=== PATIENT | female | born 1975 | race American Indian/Alaskan Native ===

== ENCOUNTER 2018-02-21 13:37 | Emergency (ER) | payer SELFPAY ==
[2018-02-21 14:07] VITALS: BP 119/63
[2018-02-21 14:59] LABS: Basophils % (Auto) 0.3 % (0.0-1.8); Eosinophils % (Auto) 0.6 % (0.0-4.3); Hematocrit 37.4 % (30.3-42.9); Hemoglobin 12.7 gm/dl (10.1-14.3); Lymphocytes # (Auto) 1.7 K/mm3 (1.2-5.4); Lymphocytes % (Auto) 24.6 % (13.4-35.0); Mean Corpuscular HGB Conc 34 % (30-34); Mean Corpuscular Hemoglobin 27 pg (28-32); Mean Corpuscular Volume 78 fl (79-97); Monocytes # (Auto) 0.7 K/mm3 (0.0-0.8); Monocytes % (Auto) 10.9 % (0.0-7.3); Platelet Count 187 K/mm3 (140-440); Red Blood Count 4.78 M/mm3 (3.65-5.03); Red Cell Distribution Width 16.1 % (13.2-15.2)
[2018-02-21 15:45] LABS: Bilirubin,Urine NEG (Negative); Blood,Urine LG (Negative); Color,Urine Yellow (Yellow); Protein,Urine <15 mg/dL mg/dL (Negative); Urobilinogen,Urine < 2.0 mg/dL (<2.0)
[2018-02-21] MEDS ORDERED: TYLENOL PO ONE (16:24)
--- NOTE | 2018-02-21 17:35 | Ultrasound Report ---
FINAL REPORT EXAM: US OB < = 14 WEEKS FETUS HISTORY: abd pain, vb, preg TECHNIQUE: Ultrasound obstetrical transabdominal PRIORS: None. FINDINGS: There is single live intrauterine gestation present crown-rump length 4.39 centimeters corresponding to estimated gestational age 11 weeks 2 days with estimated date of delivery September 10, 2018 cardiac activity is present with heart rate 168 beats per minute No free fluid seen in the cul-de-sac right ovary is 3.0 x 2.3 x 2.1 centimeters containing a 1.5 centimeter cyst Left ovary is 3.4 x 1.6 x 1.9 centimeters. No abnormal adnexal mass is identified. IMPRESSION: Single live intrauterine gestation estimated at 11 weeks 2 days
--- NOTE | 2018-02-21 19:34 | Emergency Department Report ---
HPI - General Chief Complaint: Vaginal Bleeding Time Seen by Provider: 02/21/18 14:37 - HPI HPI: The patient is a 42-year-old female , EGA 11 weeks, whom presents for evaluation of vaginal bleeding. The patient reports constant and severe vaginal bleeding for the past 3 days. The patient denies fever, chills, night sweats, trauma to the abdomen or pelvis, diarrhea, blood in the stool, dark tarry stool, dysuria, hematuria, flank pain, genital discharge, inability to pass flatus. ED Past Medical Hx - Past Medical History Previous Medical History?: No - Surgical History Past Surgical History?: Yes Additional Surgical History: c sect - Social History Smoking Status: Never Smoker Substance Use Type: None - Medications Home Medications: Home Medications Medication Instructions Recorded Confirmed Last Taken Type Pnv No.95/Ferrous Fum/Folic AC 1 each PO QDAY #31 tablet 02/21/18 Unknown Rx [ Vitamin Tablet] ED Review of Systems ROS: Stated complaint: VAG BLEED Other details as noted in HPI Constitutional: denies: fever ENT: denies: throat or neck pain Respiratory: denies: cough, shortness of breath Cardiovascular: denies: chest pain Endocrine: denies unexplained weight loss or gain Gastrointestinal: denies: abdominal pain, nausea Genitourinary: reports vaginal bleeding denies: dysuria Musculoskeletal: denies: leg swelling Skin: denies: rash Neurological: denies: headache Hematological/Lymphatic: denies: easy bleeding or easy bruising Psych: denies sadness or hopelessness Physical Exam - Physical Exam Vital Signs: Vital Signs 02/21/18 14:04 Temperature 97.6 F Pulse Rate 85 Respiratory 17 Rate Blood Pressure 119/63 O2 Sat by Pulse 100 Oximetry Physical Exam: General: well-nourished, well-developed, no acute distress Head: Normocephalic, atraumatic Eyes: normal sclera ENT: Mucous membranes are pale and dry Neck: No neck stiffness, no cervical adenopathy Respiratory: Breath sounds equal bilaterally, no wheezing, rales, or rhonchi Cardio: S1 and S2 present, no murmurs, rubs, gallops, capillary refill is delayed Abdomen: Normoactive bowel sounds, soft abdomen, no rigidity, no guarding or rebound tenderness Chest WALL/Back: No tenderness to palpation of the chest wall, no CVA tenderness with percussion Musc: No pitting edema Skin: No rash Neuro: no facial drooping, normal speech Psych: Normal affect ED Course Vital Signs 02/21/18 14:04 Temperature 97.6 F Pulse Rate 85 Respiratory 17 Rate Blood Pressure 119/63 O2 Sat by Pulse 100 Oximetry ED Medical Decision Making - Lab Data Result diagrams: 02/21/18 14:43 - Medical Decision Making The patient was seen and examined by myself. The patient is placed on a equipment monitor phototypesetting and continuous pulse ox. On initial evaluation, the patient was found to be in no distress. Evaluation orders were placed. Lab results revealed elevated hCG level and Rh+ blood type. Her son of the pelvis reveals a live intrauterine at 11 weeks EGA, with normal heart rate. The patient was reevaluated and reported that their symptoms were markedly improved. The patient is stable for discharge with outpatient follow-up. The patient is given follow-up and return instructions. The patient expressed understanding and agreed with the plan. The patient is discharged in stable condition. Critical care attestation.: If time is entered above; I have spent that time in minutes in the direct care of this critically ill patient, excluding procedure time. ED Disposition Clinical Impression: Vaginal bleeding during , Threatened miscarriage in early Disposition: DC-01 TO HOME OR SELFCARE Is pt being admited?: No Does the pt Need Aspirin: No Condition: Stable Instructions: Threatened Miscarriage (ED) Referrals: ADVID MUNOZ MD [Staff Physician] - 3-5 Days Time of Disposition: 18:23
== END 2018-02-21 18:49 | disposition home or self-care (01) ==
LOC: ED 13:37
DX: O20.0 Threatened abortion (principal); Z88.0 Allergy status to penicillin; Z3A.11 11 weeks gestation of pregnancy
CPT/HCPCS: 36415; 76801; 81001; 84702; 85025; 86850; 86900; 86901